=== PATIENT | female | born 1985 | race Caucasian/White ===

== ENCOUNTER 2020-05-28 07:28 | Emergency (ER) | payer OTHER ==
[~2020-05-28] VITALS: Ht 175.3 cm; Wt 98.7 kg
--- NOTE | ~2020-05-28 | EMS ---
[address] [address] EMS Patient Care Report Name: KAROLYN GARCIA Room #: DEP DOUGLAS Landaverde#: [id number] Admission: 05/28/20 Attend Phys: Discharge: 05/28/20 Date of : [birth year] Report #: [id number] THIS REPORT FOR: //name// Report Transmitted: 05/28/2020 07:58 EMS Care Summary [place], [place]/[facility] Incident [id number] @ 05/28/2020 06:56 Incident Location [address] [place], [place] [id number] Patient KAROLYN GARCIA Female, 34 Years 1985 Patient Address [address] [place], [place] [id number] Patient History None Reported, Patient Allergies No known allergies, Patient Medications Tramadol, Chief Complaint ANXIETY/METH USE Disposition Transported No Lights/[place] Dispatch Reason Breathing Problem Transported To [facility] Narrative DISPATCHED TO A SHORTNESS OF BREATH. ARRVED ON SCENE TO FIND FEMALE PATIENT SITTING IN THE HALLWAY OF HER APARTMENT BUILDING. SHE SAID SHE WAS FEELING [address] [address] EMS Patient Care Report Name: KAROLYN GARCIA Room #: DEP Saima#: [id number] Admission: 05/28/20 Attend Phys: Discharge: 05/28/20 Date of : [birth year] Report #: [id number] SHORT OF BREATH AND IT FELT "LIKE ANXIETY." HER VITALS WERE OBTAINED ON SCENE AND SHE WAS PLACED ON OXYGEN VIA NASAL CANNULA PER HER REQUEST. PATIENT REPORTED USING METH ALL DAY YESTERDAY UP UNTIL ONE HOUR AGO WHEN SHE SAID SHE THEN FELT LIKE SHE WAS SHORT OF BREATH. PATIENT EXIBITED NO OUTWARD SIGNS OF THIS COMPLAINT. SHE WAS ASSISTED IN STANDING AND SITTING ON THE COT, SECURED WITH STRAPS, AND MOVED TO THE BACK OF THE AMBULANCE. PATIENT WAS TRANSPORTED TO THE HOSPITAL WITH VITALS AND INTERVENTIONS MONITORED. UPON ARRIVAL AT THE HOSPITAL PATIENT WAS MOVED INTO THE ED ON THE COT AND ASSISTED IN MOVING OVER TO THE HOSPITAL BED. PATIENT CARE WAS TURNED OVER TO ED NURSING STAFF. DURING TRANSPORT PATIENT SAID THAT SHE LEFT HER 3 CHILDREN AGES 12, 6, AND 2 IN HER APARTMENT WITH NO SUPERVISION. SHE ALSO REPORTED USING THE DRUGS WITH THEM IN THE HOME "ALL DAY YESTERDAY." SINCE PATIENT MADE CONTACT WITH EMS IN THE HALLWAY OF HER APARTMENT BUILDING THE CHILDREN AND LIVING CONDITIONS WERE NEVER SEEN. UPON ARRIVAL AT THE HOSPITAL THE SITUATION WAS EXPLAINED TO ED NURSING STAFF WHO CONTACTED POLICE TO IMMEDITELY RETURN TO THE HOUSE TO CHECK THE WELFARE OF THE CHILDREN. A REPORT WAS MADE TO DEPARTMENT OF ASSISTANT PROFESSOR BY EMS BY TELEPHONE WHO SAID THEY WERE FOLLOWING UP WITH [facility]. Initial Vitals @07:16P: 77,R: 16,BP: 147/99,Pain: 0/10,GCS: 15,CO: 1,SpO2: 100,Revised Trauma: 12, @07:06P: 57,R: 16,BP: 133/67,Pain: 0/10,GCS: 15,SpO2: 100,Revised Trauma: 12, Assessments @07:03MENTAL:Person Oriented,Time Oriented,Place Oriented,Event Oriented,SKIN:HEENT:Head/Face: No Abnormalities,Neck/Airway: No Abnormalities,LUNG SOUNDS:General: Other,Left Upper: No Abnormalities,Right Upper: No Abnormalities,Left Lower: No Abnormalities,Right Lower: No Abnormalities,ABDOMEN:General: Other,Left Upper: No Abnormalities,Right Upper: No Abnormalities,Left Lower: No Abnormalities,Right Lower: No Abnormalities,PELVIS//GI:No Abnormalities,EXTREMITIES:Capillary Refill: Right Upper: < 2 Sec,Left Arm: No Abnormalities,Right Arm: No Abnormalities,Left Leg: No Abnormalities,Right Leg: No Abnormalities,PULSE:Radial: 2+ Normal,NEURO:No Abnormalities, Impression Poisoning / Drug Ingestion Procedures @07:07Oxygen FlowRate: 2 Device: Nasal Cannula (NC) Response: UnchangedSucceeded@07:03ALS AssessmentResponse: UnchangedSucceeded Timeline 06:54,Call Received 06:54,Dispatch Notified [address] [address] EMS Patient Care Report Name: KAROLYN GARCIA Room #: [facility] DOUGLAS Landaverde#: [id number] Admission: 05/28/20 Attend Phys: Discharge: 05/28/20 Date of : 87 Report #: [id number] 06:56,Dispatched 06:56,En Route 07:01,On Scene 07:03,At Patient 07:03,ALS Assessment,Response: UnchangedSucceeded, 07:06,BP: 133/67 M,PULSE: 57,RR: 16 R,SPO2: 100 Ox,ETCO2: ,BG: ,PAIN: 0,GCS: 15, 07:07,Oxygen FlowRate: 2 Device: Nasal Cannula (NC) Response: UnchangedSucceeded, 07:12,Depart Scene 07:16,BP: 147/99 M,PULSE: 77,RR: 16 R,SPO2: 100 Ox,ETCO2: ,BG: ,PAIN: 0,GCS: 15, 07:24,At Destination 07:43,Call Closed Disclaimer v1.1 Copyright 2020 [employer] This EMS Care Summary contains data elements from the applicable legal record (which may be displayed differently). It is designed to provide pertinent information for the following purposes: continuity of care, clinical quality, and state data reporting. The complete legal record is available to ED staff and administrators of the receiving hospital in [employer]'s Patient Tracker. All data is provided "as is."
[2020-05-28 08:10] VITALS: BP 142/98
--- NOTE | 2020-05-28 11:56 | EKG ---
[place] [address] [facility] [place] [address] ELECTROCARDIOGRAM REPORT Name: KAROLYN GARCIA [facility]: [id number] Admission: 05/28/20 Attend Phys: Discharge: 05/28/20 Date of : 87 Report #: [id number] [facility] ED Test Date: 2020-05-28 Test Time: 07:47:28 Pat Name: KAROLYN GARCIA Department: Room: Gender: F Supervisor Coating: JOE : 1985 Requested By: Mando Leon Order Number: [id number] MD: Wojciech García Measurements Intervals [place] Rate: 83 P: -9 TN: 130 QRS: 33 QRSD: 90 T: -10 QT: 386 QTc: 454 Interpretive Statements Sinus rhythm Borderline low voltage, extremity leads No previous ECG available for comparison Electronically Signed On 05-28-2020 11:56:12 [employer] BW DEVELOPER by Wojciech García [email or web address] <ELECTRONICALLY SIGNED> By: Wojciech García MD, [facility] 05/28/20 1156 [id number] Wojciech García MD, FACC /EPI
== END 2020-05-28 08:12 | disposition home or self-care (01) ==
LOC: ER 07:28
DX: F15.10 Other stimulant abuse, uncomplicated (principal); F17.210 Nicotine dependence, cigarettes, uncomplicated; R10.13 Epigastric pain; R06.02 Shortness of breath; R20.2 Paresthesia of skin